=== PATIENT | male | born 1990 | race American Indian/Alaskan Native ===

== ENCOUNTER 2017-11-17 21:33 | Emergency (ER) | payer MEDICAID ==
[2017-11-17 21:38] VITALS: BP 156/98; PULSE 106; RESP 20; TEMP 97.9; O2SAT 98
--- NOTE | 2017-11-17 21:48 | C.PDOC ---
History Of Present Illness 27 year old male presents to the ED complaining of pain to his left great toe for 2 days. States he was moving around in his room, barefoot, when he stubbed the toe on the bed frame. There is no swelling or bruising. Denies changes in sensation. Patient took Tylenol with slight improvement. He is still able to ambulate and move the toes. Time Seen by Provider: 11/17/17 21:44 Chief Complaint (Nursing): Lower Extremity Problem/Injury History Per: Patient History/Exam Limitations: no limitations Onset/Duration Of Symptoms: Days (x2) Current Symptoms Are (Timing): Still Present Past Medical History Reviewed: Historical Data, Nursing Documentation, Vital Signs Vital Signs: Last Vital Signs Temp 97.9 F 11/17/17 21:34 Pulse 106 H 11/17/17 21:34 Resp 20 11/17/17 21:34 BP 156/98 H 11/17/17 21:34 Pulse Ox 98 11/17/17 22:00 - Medical History PMH: No Chronic Diseases Surgical History: Hernia Repair Family History: States: No Known Family Hx - Social History Hx Tobacco Use: No Hx Alcohol Use: No Hx Substance Use: No - Immunization History Hx Tetanus Toxoid Vaccination: No Hx Influenza Vaccination: No Hx Pneumococcal Vaccination: No Review Of Systems Musculoskeletal: Positive for: Other (left toe pain) Skin: Negative for: Bruising Neurological: Negative for: Weakness, Numbness (and tingling) Physical Exam - Physical Exam Appears: Non-toxic, No Acute Distress Skin: Warm, Dry, No Rash Head: Atraumatic, Normacephalic Eye(s): bilateral: Normal Inspection, EOMI Neck: Normal ROM Chest: Symmetrical Extremity: Tenderness (to the 1st toe digit, MTP of left foot), Capillary Refill (< 2 sec), No Swelling (or ecchymosis) Pulses: Left Dorsalis Pedis: Normal, Right Dorsalis Pedis: Normal Neurological/Psych: Oriented x3, Normal Speech, No Other (focal deficits) Gait: Steady ED Course And Treatment O2 Sat by Pulse Oximetry: 98 (RA) Pulse Ox Interpretation: Normal Medical Decision Making Medical Decision Making: Impression: 27 year old with toe injury Time: 21:45 Plan: * X-Ray Left foot, great toe * Motrin 600 mg PO 2155 Xray viewed by me showing no acute fracture or dislocation of toe or other abnormality of foot Patient informed of xray results. Recommend rest ice and NSAID for pain. Advise follow up with podiatry or orthopedic if the pain persists. Disposition Counseled Patient/Family Regarding: Diagnosis, Need For Followup, Rx Given - Disposition Referrals: Podiatry Clinic [Outside] Disposition: HOME/ ROUTINE Disposition Time: 22:15 Condition: IMPROVED Additional Instructions: Your xray was normal, no fracture. Please apply ice to area 15 minutes three times a day. Take Motrin as needed for pain every 6 hours, with food to not upset stomach. Follow up with podiatry or orthopedic if pain persists over one week. Prescriptions: Ibuprofen [Motrin] 600 mg PO Q8 #30 tab Instructions: Toe Injury (DC) Forms: [employer] ([place]) - POA Present On Arrival: None - Clinical Impression Clinical Impression: Toe contusion - PA / POWER MANAGER / Resident Statement MD/DO has reviewed & agrees with the documentation as recorded. - Scribe Statement The provider has reviewed the documentation as recorded by the Scribe (Fátima Delong) All medical record entries made by the Scribe were at my direction and personally dictated by me. I have reviewed the chart and agree that the record accurately reflects my personal performance of the history, physical exam, medical decision making, and the department course for this patient. I have also personally directed, reviewed, and agree with the discharge instructions and disposition.
--- NOTE | 2017-11-18 07:06 | RAD ---
PROCEDURE: Radiographs of the left great toe. TECHNIQUE:: AP radiograph of the left foot, with oblique and lateral view of the left great toe. COMPARISON: None. FINDINGS: BONES: No acute fracture or destructive bony lesion identified. JOINTS: Normal. SOFT TISSUES: Normal. OTHER FINDINGS: None. IMPRESSION: Unremarkable left great toe radiographs.
== END 2017-11-17 22:23 | disposition home or self-care (01) ==
LOC: C.ER 21:33
DX: S90.112A Contusion of left great toe without damage to nail, initial encounter (principal); W22.03XA Walked into furniture, initial encounter

== ENCOUNTER 2018-04-16 19:56 | Emergency (ER) | payer MEDICAID ==
[2018-04-16 20:31] VITALS: BP 128/81; RESP 18; TEMP 98.9
[2018-04-16 20:39] VITALS: PULSE 86; O2SAT 97
[2018-04-16] MEDS ORDERED: Amoxicillin-Clav 875-125 mg Tab PO STA (20:49)
[2018-04-16] MEDS ORDERED: Albuterol 0.083% Inhal Sol (2.5 mg/3 mL) UD IH STA (20:49)
--- NOTE | 2018-04-16 21:00 | C.PDOC ---
History Of Present Illness 28 yo male come in fo revaluation of B?L nasal congestion gradually developed for past 2 weeks associated with copious post-nasal drip, sore throat, dry cough. Pt admits, "sx started after was elbowed to my nose". Pt sts, was seen by PMD early today who sent pt to ED for CT. Otherwise, pt denies fever, chills , headache, dizziness, vertigo, ear discharge, drooling, dysphagia, dyspnea, CP , SOB, wheezing, abd. pain, V/D, UTi sx. Ambulate to Ed for evaluation, not in resp. distress. Time Seen by Provider: 04/16/18 20:23 Chief Complaint (Nursing): ENT Problem History Per: Patient Past Medical History Reviewed: Historical Data, Nursing Documentation, Vital Signs Vital Signs: Last Vital Signs Temp 98.9 F 04/16/18 20:29 Pulse 86 04/16/18 20:29 Resp 18 04/16/18 20:29 BP 128/81 04/16/18 20:29 Pulse Ox 97 04/16/18 21:02 - Medical History PMH: No Chronic Diseases Other PMH: Obesity Surgical History: Hernia Repair Family History: States: No Known Family Hx - Social History Hx Tobacco Use: No Hx Alcohol Use: No Hx Substance Use: No - Immunization History Hx Tetanus Toxoid Vaccination: No Hx Influenza Vaccination: No Hx Pneumococcal Vaccination: No Review Of Systems Except As Marked, All Systems Reviewed And Found Negative. Constitutional: Negative for: Fever, Chills Eyes: Negative for: Vision Change ENT: Positive for: Nose Congestion, Throat Pain. Negative for: Ear Pain, Ear Discharge, Throat Swelling Cardiovascular: Negative for: Chest Pain Respiratory: Positive for: Cough. Negative for: Shortness of Breath, Wheezing Gastrointestinal: Negative for: Nausea, Vomiting, Abdominal Pain, Diarrhea Genitourinary: Negative for: Dysuria Musculoskeletal: Negative for: Neck Pain, Back Pain Neurological: Negative for: Weakness, Numbness, Altered Mental Status, Headache , Dizziness Physical Exam - Physical Exam Appears: Well, Non-toxic, No Acute Distress Skin: Normal Color, Warm, Dry, No Rash Head: Normacephalic Eye(s): bilateral: PERRL Ear(s): Bilateral: Normal Nose: No Flaring, Discharge (B/L nasal congestion with clear rhinorrhea), Other ((+) B/L paranasal tenderness without edema or erythema.) Oral Mucosa: Moist, No Drooling Tongue: Normal Appearing, No Swelling Lips: Normal Appearing, No Swelling Throat: No Erythema, No Exudate, No Drooling, Other ((+) clear post-nasal drip) Neck: Trachea Midline, Supple Cardiovascular: Rhythm Regular, No Murmur, No JVD, Other ((-) carotid bruits B/L ) Respiratory: No Decreased Breath Sounds, No Accessory Muscle Use, No Stridor, No Wheezing Gastrointestinal/Abdominal: Soft, No Tenderness, No Distention, No Guarding, No Rebound Back: No CVA Tenderness Extremity: Normal ROM, No Pedal Edema, No Deformity, No Swelling Neurological/Psych: Oriented x3, Normal Speech ED Course And Treatment O2 Sat by Pulse Oximetry: 97 Pulse Ox Interpretation: Normal - CT Scan/US CT sinus Other Rad Studies (CT/US): Radiology Report Reviewed CT/US Interpretation: IMPRESSION: Mild paranasal sinus disease as described above with tiny air-fluid level right maxillary sinus. Clinical. correlation for symptoms of acute sinusitis recommended. Thank you for allowing us to participate in the care of your patient. Dictated and Authenticated by: Maria E Ferrer MD Progress Note: On re-eval, pt is afebrile, hemodynamicaly stable. NOn-toxic. [place] Po well in ED. PulsEOx 97% RA. ENT: (+) exam c/w paranasal sinusitis. uvula midline, no edema. Neck: Supple, (-) meningeal sign, (-) JVD. Lungs: CTA B/L, BS equal B/L. Abd: benign, (-) guarding, (-) rebound. neuorlogicaly intact. CT sinuses review and c/w sinusitis. Pt advised on course of ds. REf. to Follow up with PMD, ENT in 2 days for re-eval. return to ED if any worsening or new chnages Disposition Counseled Patient/Family Regarding: Studies Performed, Diagnosis, Need For Followup, Rx Given - Disposition Referrals: Aidan George MD [Staff Provider] - Disposition: HOME/ ROUTINE Disposition Time: 22:26 Condition: STABLE Additional Instructions: Take medication as prescribed Follow up with ENT in 2-3 dyas for re-evaluation. return to ED if any worsening or new changes. Prescriptions: Amoxicillin/Clavulanate [Augmentin 875 MG-125 MG] 1 tab PO BID #14 tab Loratadine [Claritin] 10 mg PO DAILY #14 tab Prednisone [Deltasone] 40 mg PO DAILY #6 tablet Instructions: Sinusitis in Adults Forms: [employer] [facility] ([place]) - Clinical Impression Clinical Impression: Sinusitis
[2018-04-16] MEDS ORDERED: Albuterol 0.083% Inhal Sol (2.5 mg/3 mL) UD ONE (21:01)
[2018-04-16] MEDS ORDERED: Amoxicillin-Clav 875-125 mg Tab PO ONE (21:01)
--- NOTE | 2018-04-17 15:53 | CT ---
Date of service: 04/16/2018 PROCEDURE: CT SINUSES WITHOUT CONTRAST HISTORY: Injury. Sinusitis. The the COMPARISON: None available. TECHNIQUE: Contiguous axial CT images of the paranasal sinuses were obtained. Coronal and sagittal reformats were generated. Radiation dose: Total exam DLP = 630.42 mGy-cm. This CT exam was performed using one or more of the following dose reduction techniques: Automated exposure control, adjustment of the mA and/or kV according to patient size, and/or use of iterative reconstruction technique. FINDINGS: FRONTAL SINUSES: Clear. ETHMOID SINUSES: Sinusitis minimal mucosal thickening seen within the ethmoid air complex. SPHENOID SINUSES: Clear. MAXILLARY SINUSES: Minimal mucosal thickening seen in the both maxillary antra right more so than left. There is also some minimal mucosal thickening ethmoid air complex. No fluid levels seen to suggest acute SINUS DRAINAGE: Osteomeatal complexes, frontal recesses and sphenoethmoid recesses clear. NASAL SEPTUM: No significant deviation. No destructive lesion. MASS: None. SKULL BASE: Skull base intact. Questionable minimal on right frontal scalp swelling. TEMPORAL BONES: Middle ears and mastoid grossly unremarkable. OTHER FINDINGS: Orbits and contents unremarkable. The globes intact and lenses appropriately located. There are no retrobulbar hemorrhages or collections. Optic nerves and extraocular musculature unremarkable Note also made of several small intra parotid soft tissue densities likely representing incidental parotid lymph nodes. Followup interval recommended to exclude the possibility of intra parotid mass lesion. IMPRESSION: No evidence of acute sinusitis. Minimal mucosal thickening both maxillary antra as well as ethmoid air cells. Note made of several small intra parotid soft tissue density likely representing incidental small intra parotid lymph nodes. Followup at interval recommended to exclude possibility of a parotid mass lesion. Note this report was placed in PA review folder for followup
== END 2018-04-16 22:53 | disposition home or self-care (01) ==
LOC: C.ER 19:56
DX: J32.9 Chronic sinusitis, unspecified (principal)

== ENCOUNTER 2018-09-03 15:46 | Emergency (ER) | payer MEDICAID ==
[2018-09-03 15:56] VITALS: BP 131/88; PULSE 85; RESP 18; TEMP 98.4; O2SAT 97
--- NOTE | 2018-09-03 16:38 | C.PDOC ---
History Of Present Illness 28 year old male patient history of acid reflux presents to the emergency room complaining of abdominal burning which occurs after coughing. Associated symptoms includes throat burning, headache and running nose. Patient denies fever, chills and cough. Time Seen by Provider: 09/03/18 15:57 Chief Complaint (Nursing): ENT Problem History Per: Patient History/Exam Limitations: no limitations Onset/Duration Of Symptoms: Days, Intermittent Episodes Current Symptoms Are (Timing): Still Present Past Medical History Reviewed: Historical Data, Nursing Documentation, Vital Signs Vital Signs: Last Vital Signs Temp 98.4 F 09/03/18 15:52 Pulse 85 09/03/18 15:52 Resp 18 09/03/18 15:52 BP 131/88 09/03/18 15:52 Pulse Ox 97 09/03/18 15:52 - Medical History PMH: GERD Surgical History: Hernia Repair Family History: States: No Known Family Hx - Social History Hx Tobacco Use: No Hx Alcohol Use: No Hx Substance Use: No - Immunization History Hx Tetanus Toxoid Vaccination: No Hx Influenza Vaccination: No Hx Pneumococcal Vaccination: No Review Of Systems Except As Marked, All Systems Reviewed And Found Negative. Constitutional: Negative for: Fever, Chills ENT: Positive for: Ear Discharge (clear ), Other (throat burning ) Respiratory: Negative for: Cough Gastrointestinal: Positive for: Other (abdominal burn ) Neurological: Positive for: Headache Physical Exam - Physical Exam Appears: Non-toxic, No Acute Distress Skin: Warm, Dry, No Rash Head: Atraumatic, Normacephalic Eye(s): bilateral: Normal Inspection, EOMI Ear(s): Bilateral: Normal Oral Mucosa: Moist Throat: Normal, No Erythema, No Exudate Neck: Normal ROM, Supple Chest: Symmetrical Cardiovascular: Rhythm Regular, No Friction Rub, No Murmur Respiratory: Normal Breath Sounds, No Rales, No Rhonchi, No Stridor, No Wheezing Gastrointestinal/Abdominal: Soft, No Tenderness Back: No CVA Tenderness Extremity: Normal ROM, No Swelling Neurological/Psych: Oriented x3, Normal Speech Gait: Steady ED Course And Treatment O2 Sat by Pulse Oximetry: 97 (RA) Pulse Ox Interpretation: Normal Medical Decision Making Medical Decision Making: Plans: -- Abdomen with chest XR On re-exam, the patient the patient reports improvement of symptoms. Lungs are CTA, heart is RRR, abdomen is soft, non-tender and tolerating PO well. The patient is ambulatory in the ED with steady gait. Follow up with the medical doctor within 1-2 days. Return if worsened. Disposition - Disposition Referrals: Melissa Cho MD [Staff Provider] - Disposition: HOME/ ROUTINE Disposition Time: 17:22 Condition: STABLE Additional Instructions: Follow up with the medical doctor within 1-2 days. Return if worsened. Prescriptions: Famotidine [Pepcid] 20 mg PO BID #20 tab Loratadine [Claritin] 10 mg PO DAILY #10 tab predniSONE [Prednisone] 10 mg PO BID #10 tab Instructions: Viral Upper Respiratory Infection, Adult (DC), Dyspepsia Forms: [employer] ([place] Sorbian) - Clinical Impression Clinical Impression: Upper respiratory infection, Dyspepsia - PA / SALES ACTIVITY MANAGER / Resident Statement MD/ has reviewed & agrees with the documentation as recorded. - Scribe Statement The provider has reviewed the documentation as recorded by the Pricilla Hdz Do All medical record entries made by the Scribe were at my direction and personally dictated by me. I have reviewed the chart and agree that the record accurately reflects my personal performance of the history, physical exam, medical decision making, and the department course for this patient. I have also personally directed, reviewed, and agree with the discharge instructions and disposition.
--- NOTE | 2018-09-03 16:54 | RAD ---
Date of service: 09/03/2018 HISTORY: epig pain and coughing COMPARISON: None available. FINDINGS: BOWEL: Constipation without fecal impaction or obstruction. BONES: Scoliosis, secondary degenerative change at multiple levels. OTHER FINDINGS: None. IMPRESSION: No significant or acute findings to account for/ related to the clinical presentation. Moderate dextroscoliosis thoracolumbar spine.
== END 2018-09-03 17:35 | disposition home or self-care (01) ==
LOC: C.ER 15:46
DX: J06.9 Acute upper respiratory infection, unspecified (principal); R10.13 Epigastric pain; K21.9 Gastro-esophageal reflux disease without esophagitis